=== PATIENT | female | born 1990 | race Caucasian/White ===

== ENCOUNTER 2016-11-27 09:04 | Emergency (ER) | payer OTHER ==
[~2016-11-27] VITALS: Ht 149.9 cm; Wt 82.5 kg
[2016-11-27 09:51] LABS: BASOPHIL % 0.9 % (0-2); PLATELET COUNT 251 x10^3mcL (130-400)
[2016-11-27 09:59] LABS: CALCIUM 8.7 mg/dL (8.5-10.1); CARBON DIOXIDE 30.8 mmol/L (21-32); CHLORIDE SERUM 105 mmol/L (98-107); CREATININE SERUM 0.6 mg/dL (0.6-1.0); GFR1 > 60 mL/min; GLUCOSE SERUM 89 mg/dL (74-106); POTASSIUM SERUM 4.2 mmol/L (3.5-5.1); SODIUM SERUM 142 mmol/L (136-145)
[2016-11-27 10:03] LABS: microscopic required? YES; urine erythrocyte NEGATIVE (NEGATIVE)
[2016-11-27 10:04] LABS: ALBUMIN 3.5 g/dL (3.4-5.0); ALKALINE PHOSPHATASE 79 U/L (46-116); ALT/SGPT 25 U/L (14-59); AST/SGOT 16 U/L (15-37); BILIRUBIN TOTAL 0.37 mg/dL (0.20-1.00); TOTAL PROTEIN, SERUM 6.7 g/dL (6.4-8.2)
[2016-11-27 10:12] LABS: AMPHETAMINE QUAL UR NONE DETECTED (NEG <=1000)
[2016-11-27 11:58] VITALS: BP 99/59
== END 2016-11-27 11:59 | disposition home or self-care (01) ==
LOC: ED 09:04
PROVIDERS: Emergency Medicine
DX: S16.1XXA Strain of muscle, fascia and tendon at neck level, initial encounter (principal); S09.8XXA Other specified injuries of head, initial encounter; G40.909 Epilepsy, unspecified, not intractable, without status epilepticus; F12.90 Cannabis use, unspecified, uncomplicated; W18.30XA Fall on same level, unspecified, initial encounter; Y93.89 Activity, other specified; Y99.8 Other external cause status; Y92.89 Other specified places as the place of occurrence of the external cause
CPT/HCPCS: 80307; 83880